=== PATIENT | female | born 1995 | race Caucasian/White ===

== ENCOUNTER 2017-03-25 09:48 | Emergency (ER) | payer MEDICARE, OTHER | END 2017-03-25 11:41 | disposition home or self-care (01) | LOC: ER 09:48 | DX: J06.9 Acute upper respiratory infection, unspecified (principal); E86.0 Dehydration; J45.909 Unspecified asthma, uncomplicated; F17.200 Nicotine dependence, unspecified, uncomplicated | CPT/HCPCS: 87070; 87880; 99283; A9270-GY ==